=== PATIENT | male | born 1985 ===

== ENCOUNTER 2016-12-20 02:34 | Emergency (ER) | payer MEDICAID, OTHER ==
[2016-12-20 02:43] VITALS: BMI 20.7
[2016-12-20 02:44] VITALS: O2SAT 98
[2016-12-20 03:32] LABS: HEMATOCRIT 45.6 % (35.0-51.0); MEAN CELL VOLUME 91.5 fl (80.0-94.0); MEAN CORPUSCULAR HEMOGLOBIN 31.2 pg (27.0-31.0); WHITE BLOOD COUNT 6.9 K/uL (4.8-10.8)
[2016-12-20 03:43] LABS: ALB/GLOB RATIO 1.3 (1.0-2.1); ALCOHOL SERUM 296 mg/dl (0-10); ALKALINE PHOSPHATASE 77 U/L (38-126); ALT/SGPT 32 U/L (21-72); AST/SGOT 36 U/L (17-59); BILIRUBIN,TOTAL 0.9 mg/dl (0.2-1.3); BLOOD UREA NITROGEN 10 mg/dl (9-20); CALCIUM 9.4 mg/dL (8.4-10.2); CARBON DIOXIDE 22 mmol/L (22-30); CHLORIDE 107 mmol/L (98-107); GFR AFRICAN-AMERICAN > 60; GLUCOSE,RANDOM 92 mg/dL (75-110); POTASSIUM 3.7 MMOL/L (3.6-5.0); SODIUM 149 mmol/l (132-148); TOTAL PROTEIN 8.5 G/DL (6.3-8.2)
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
[2016-12-20 06:37] VITALS: BP 126/86; PULSE 91; RESP 16; TEMP 97.6
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
== END 2016-12-20 06:38 | disposition home or self-care (01) ==
LOC: H.ER 02:34
DX: S01.01XA Laceration without foreign body of scalp, initial encounter (principal); X99.0XXA Assault by sharp glass, initial encounter
CPT/HCPCS: 12004; 70450; 80053; 85027; 96372; 99285; G0480; J1630; J2060

== ENCOUNTER 2016-12-24 11:17 | Emergency (ER) | payer MEDICAID ==
[2016-12-24 11:17] VITALS: BMI 20.7
[2016-12-24 11:25] VITALS: RESP 16; O2SAT 99
--- NOTE | 2016-12-24 11:33 | ED PDOC ---
HPI: Wound Care - HPI Time Seen by Provider: 12/24/16 11:31 Chief Complaint (Nursing): Suture/Staple Removal Chief Complaint (Provider): staple reoval History Per: Patient (31 y/o male here for staple removal. Has had kenney placed 5 days ago. Denies any other complaints.) Past Medical History Reviewed: Historical Data, Nursing Documentation, Vital Signs Vital Signs: Last Vital Signs Temp 98.4 F 12/24/16 11:24 Pulse 61 12/24/16 11:24 Resp 16 12/24/16 11:24 BP 120/66 12/24/16 11:24 Pulse Ox 99 12/24/16 11:24 - Family History Family History: States: No Known Family Hx - Home Medications Home Medications: Ambulatory Orders Medication Instructions Recorded Mineral Oil/Pramoxine Hydroc 1 oin TP BID PRN #1 10/02/14 [Anusol] Oxycodone HCl/Acetaminophen 1 tab PO Q4 PRN #12 tab 10/02/14 [Percocet 325 mg-5 mg] Cephalexin [Keflex] 500 mg PO BID #14 capsule 12/20/16 - Allergies Allergies/Adverse Reactions: Allergies Allergy/AdvReac Type Severity Reaction Status Date / Time No Known Allergies Allergy Verified 12/20/16 02:41 Review of Systems ROS Statement: Except As Marked, All Systems Reviewed And Found Negative Physical Exam - Reviewed Nursing Documentation Reviewed: Yes Vital Signs Reviewed: Yes - Physical Exam Appears: Positive for: Well, Non-toxic, No Acute Distress Head Exam: Positive for: NORMAL INSPECTION, NORMOCEPHALIC. Negative for: ATRAUMATIC (11 kenney on superior aspect of scalp) Skin: Positive for: Normal Color, Warm, DRY Eye Exam: Positive for: EOMI, Normal appearance, PERRL ENT: Positive for: Normal ENT Inspection Neck: Positive for: Normal, Painless ROM Cardiovascular/Chest: Positive for: Regular Rate, Rhythm Respiratory: Positive for: CNT, Normal Breath Sounds Gastrointestinal/Abdominal: Positive for: Normal Exam, Bowel Sounds, Soft Back: Positive for: Normal Inspection Extremity: Positive for: Normal ROM Neurologic/Psych: Positive for: Alert, Oriented - ECG O2 Sat by Pulse Oximetry: 99 Disposition - Clinical Impression Clinical Impression: Visit for wound check - Patient ED Disposition Is Patient to be Admitted: No - Disposition Disposition: Routine/Home Disposition Time: 11:32 Condition: FAIR Additional Instructions: REGRESA EN 2 A 5 HALL PARA QUITAR PUNTOS. Instructions: Staple Care (ED) Print Language: TANZANIAN
[2016-12-24 11:34] VITALS: BP 124/75; PULSE 78; TEMP 98.1
== END 2016-12-24 11:57 | disposition home or self-care (01) ==
LOC: H.ER 11:17
DX: Z48.02 Encounter for removal of sutures (principal)

== ENCOUNTER 2016-12-26 12:03 | Emergency (ER) | payer MEDICAID ==
[2016-12-26 12:04] VITALS: BMI 20.7
[2016-12-26 12:12] VITALS: BP 130/69; PULSE 59; RESP 18; TEMP 99; O2SAT 100
== END 2016-12-26 12:50 | disposition home or self-care (01) ==
LOC: H.ER 12:03
DX: Z48.02 Encounter for removal of sutures (principal)